=== PATIENT | male | born 1965 | race Two or more races ===

== ENCOUNTER 2019-04-23 13:28 | Emergency (ER) | payer SELFPAY ==
[~2019-04-23] VITALS: Ht 167.6 cm; Wt 69.0 kg
[2019-04-23] MEDS ORDERED: CHLORDIAZEPOXIDE 25MG CAPSULE PO ONE (17:00)
[2019-04-23] MEDS ORDERED: SODIUM CHLORIDE 0.9% 1,000 ML IV ONE (21:42)
[2019-04-23 22:50] LABS: CHLORIDE 102 mEq/L (98-107)
[2019-04-23 22:54] LABS: BASOPHILS % 0.4 % (0.0-2.0); EOSINOPHILS % 0.1 % (0.0-5.0); HEMATOCRIT. 45.1 % (42.0-52.0); LYMPHOCYTES % 14.8 % (20.0-50.0); MEAN CORPUSCULAR HEMOGLOBIN 28.5 pg (28.0-32.0); MEAN CORPUSCULAR VOLUME 85.9 fL (80.0-94.0); MEAN PLATELET VOLUME 7.2 fl (7.4-10.4); MONOCYTES % 6.6 % (2.0-8.0); NEUTROPHILS % 78.1 % (40.0-76.0); PLATELET 558 x1000/uL (130-400); RED BLOOD CELL COUNT 5.25 mill/uL (4.7-6.1); RED CELL DISTRIBUTION WIDTH 16.1 % (11.6-14.6)
[2019-04-23 23:01] LABS: ETHANOL BLOOD 286 mg/dL
[2019-04-24 00:53] LABS: *AMPHETAMINES SCREEN URINE NEGATIVE (NEGATIVE); *BARBITURATES SCREEN URINE NEGATIVE (NEGATIVE); *BENZODIAZEPINES SCREEN URINE NEGATIVE (NEGATIVE); *COCAINE SCREEN URINE NEGATIVE (NEGATIVE)
[2019-04-24 00:54] LABS: CANNABINOID URINE SCREEN NEGATIVE (NEGATIVE); METHADONE URINE SCREEN NEGATIVE (NEGATIVE); OPIATES URINE SCREEN NEGATIVE (NEGATIVE); PHENCYCLIDINE URINE SCREEN NEGATIVE (NEGATIVE)
[2019-04-24] MEDS ORDERED: SODIUM CHLORIDE 0.9% 1,000 ML IV ONE (01:24)
[2019-04-24 05:57] VITALS: BP 136/92
== END 2019-04-24 06:04 | disposition home or self-care (01) ==
LOC: EDBD 13:28 → ER 13:28
DX: F10.129 Alcohol abuse with intoxication, unspecified (principal); Y90.0 Blood alcohol level of less than 20 mg/100 ml; Z98.890 Other specified postprocedural states
CPT/HCPCS: 36415; 80053; 80305; 80320; 85025; 99283; J7030; Z7610; G0480

== ENCOUNTER 2021-07-17 21:34 | Emergency (ER) | payer SELFPAY ==
[~2021-07-17] VITALS: Ht 160 cm; Wt 80.0 kg
[2021-07-18 12:29] VITALS: BP 135/66
== END 2021-07-18 12:30 | disposition home or self-care (01) ==
LOC: ER 21:34
DX: G92.9 Unspecified toxic encephalopathy (principal); F10.129 Alcohol abuse with intoxication, unspecified; Y90.9 Presence of alcohol in blood, level not specified; Z68.31 Body mass index [BMI] 31.0-31.9, adult
CPT/HCPCS: 82962; 99283